=== PATIENT | female | born 2000 | race Caucasian/White ===

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

== ENCOUNTER 2019-02-26 17:17 | Emergency (ER) | payer OTHER ==
[~2019-02-26] VITALS: Ht 162.6 cm; Wt 63.5 kg
[~2019-02-26 17:17] MED LIST: FLAGYL500 M1 PO
[2019-02-26] MEDS ORDERED: VITAFOL-OB+DHA1 EACH PO (17:49)
[2019-02-26 19:36] VITALS: BP 94/59
== END 2019-02-26 19:37 | disposition home or self-care (01) ==
LOC: ER 17:17
DX: O9A.212 Injury, poisoning and certain other consequences of external causes complicating pregnancy, second trimester (principal); S39.81XA Other specified injuries of abdomen, initial encounter; Z3A.26 26 weeks gestation of pregnancy; W28.XXXA Contact with powered lawn mower, initial encounter; Y92.89 Other specified places as the place of occurrence of the external cause; Y93.89 Activity, other specified; Y99.8 Other external cause status